=== PATIENT | female | born 1945 | race Caucasian/White ===

== ENCOUNTER → 2016-06-27 | Outpatient (CLI) | payer BC, OTHER ==
--- NOTE | 2016-06-27 10:13 | RADRPT ---
PROCEDURE: XR pelvis/right hip. CLINICAL INDICATION: Hip pain TECHNIQUE: AP pelvis/AP and lateral right hip views performed COMPARISON: No prior studies are available for comparison. FINDINGS: There is mild bilateral hip osteoarthrosis. This is associated with joint space narrowing, subchondr al sclerosis and osteophytosis. There is normal mineralization. No fractures or osseous lesions ar e identified. There is L3-S1 degenerative disk disease. The soft tissues are unremarkable. IMPRESSION: Mild bilateral hip osteoarthrosis. L3-S1 degenerative disk disease RPTAT: HGDB .Hiro Bob MD, MD Date Time Electronically viewed and signed by .Hiro Bob MD, on 06/27/2016 10:13 .B/
== END | disposition home or self-care (01) ==
LOC: HKI 08:30
PROVIDERS: ATTEND Orthopaedic Surgery
DX: M70.61 Trochanteric bursitis, right hip (principal); M25.551 Pain in right hip; M51.36 Other intervertebral disc degeneration, lumbar region; M54.16 Radiculopathy, lumbar region; Z79.82 Long term (current) use of aspirin
CPT/HCPCS: 20610; 73502; G0463; J1030

== ENCOUNTER → 2016-12-05 | Outpatient (CLI) | payer OTHER ==
--- NOTE | 2016-12-05 14:04 | RADRPT ---
PROCEDURE: Right knee radiographs. CLINICAL INDICATION: Right knee pain. TECHNIQUE: Four views. Weight bearing. Frontal, lateral, oblique, and patellar view. COMPARISON: No prior studies are available for comparison. FINDINGS: There is no fracture or dislocation. The soft tissues are normal. There are degenerative changes with osteophytes arising from all 3 joint compartment margins. There is medial joint compartment narrowing, subarticular sclerosis, and mild deformity. There is no lytic or blastic lesion. There is no radiopaque foreign body. IMPRESSION: 1. Moderate to severe degenerative changes of the right knee. 2. No acute abnormality. RPTAT: QQ .Bryan Gilmore MD, MD Date Time Electronically viewed and signed by .Bryan Gilmore MD, on 12/05/2016 14:03 .R/
== END | disposition home or self-care (01) ==
LOC: HKI 10:16
PROVIDERS: ATTEND Orthopaedic Surgery
DX: M17.11 Unilateral primary osteoarthritis, right knee (principal); I10 Essential (primary) hypertension; E11.9 Type 2 diabetes mellitus without complications; G20 Parkinson's disease; Z85.850 Personal history of malignant neoplasm of thyroid
CPT/HCPCS: 20610; 73564; G0463; J1030